=== PATIENT | female | born 1975 | race Caucasian/White ===

== ENCOUNTER 2024-03-30 12:49 | Day surgery (SDC) | payer OTHER ==
[2024-03-30] MEDS: FERRIC CARBOXYMALTOSE 750 MG in SODIUM CHLORIDE 250 ML IVPB ONE (13:06)
[2024-03-30 15:35] VITALS: RESP 18; TEMP 98.2
[2024-03-30 15:39] VITALS: BP 109/62; PULSE 80
== END 2024-03-30 14:15 | disposition home or self-care (01) ==
LOC: J7W 12:49 → JONCNONCHE 12:49
PROVIDERS: ATTEND Internal Medicine Hematology & Oncology
PROC: 3E033GC Introduction of Other Therapeutic Substance into Peripheral Vein, Percutaneous Approach (ICD-10-PCS; principal; 2024-03-30)
DX: D50.9 Iron deficiency anemia, unspecified (principal)
CPT/HCPCS: 96365; J1439

== ENCOUNTER 2024-04-06 16:05 | Day surgery (SDC) | payer OTHER ==
[2024-04-06] MEDS: FERRIC CARBOXYMALTOSE 750 MG in SODIUM CHLORIDE 250 ML IVPB ONE (16:12)
[2024-04-06 16:26] VITALS: RESP 18; TEMP 98.3
[2024-04-06 16:59] VITALS: BP 111/62; PULSE 79
== END 2024-04-06 17:17 | disposition home or self-care (01) ==
LOC: JONCCHEMO 16:05 → J7W 16:05 → JONCCHEMO 17:17
PROVIDERS: ATTEND Internal Medicine Hematology & Oncology
PROC: 3E033GC Introduction of Other Therapeutic Substance into Peripheral Vein, Percutaneous Approach (ICD-10-PCS; principal; 2024-04-06)
DX: D50.9 Iron deficiency anemia, unspecified (principal)
CPT/HCPCS: 96365; J1439